=== PATIENT | female | born 1965 | race Caucasian/White ===

== ENCOUNTER 2017-08-15 09:05 | Emergency (ER) | payer BC ==
[~2017-08-15] VITALS: Ht 167.6 cm; Wt 90.7 kg
[~2017-08-15 09:05] MED LIST: SEROQUEL50 MG PO; SYNTHROID 0.0.125 MG PO; VITAMIN D31000 IU PO
--- OUTSIDE RECORDS SUMMARY | 2017-08-15 09:08 | External Medical Summary Rpt | CCD ---
Author Author , CELIA YANG Address Unknown Phone [email or web address] Purpose Continuity of Care Document - 04-19-2017 through 2016 Problems Code Diagnosis DOS Provider Status R92.8 OTHER 04-19-2017 ABNORMAL AND INCONCLUSIV E FINDINGS ON DIAGNOSTIC IMAGING OF BREAST
--- OUTSIDE RECORDS SUMMARY | 2017-08-15 09:08 | External Medical Summary Rpt | CCD ---
Author Author , CELIA YANG Address Unknown Phone [email or web address] Purpose Continuity of Care Document - 04-19-2017 through 2016 Problems Code Diagnosis DOS Provider Status R92.8 OTHER 04-19-2017 ABNORMAL AND INCONCLUSIV E FINDINGS ON DIAGNOSTIC IMAGING OF BREAST
--- OUTSIDE RECORDS SUMMARY | 2017-08-15 09:09 | External Medical Summary Rpt | CCD ---
Demographics Preferred Language Kittitian Marital Status Unknown Judaism Affiliation Unknown Race Unknown Ethnic Group Unknown Author Author , CELIA YANG Address Unknown Phone Immunization No patient found.
--- OUTSIDE RECORDS SUMMARY | 2017-08-15 09:09 | External Medical Summary Rpt ---
Author Author CELIA [place], [employer] Organization [employer] Address Unknown Phone Unavailable
--- OUTSIDE RECORDS SUMMARY | 2017-08-15 09:09 | External Medical Summary Rpt | CCD ---
Author Author [employer] Organization [employer] Address Unknown Phone Unavailable Purpose Continuity of Care Document - through 2016
--- OUTSIDE RECORDS SUMMARY | 2017-08-15 09:09 | External Medical Summary Rpt | CCD ---
Demographics Preferred Language [place] Marital Status Unknown Jainism Affiliation Unknown Race Unknown Ethnic Group Unknown Author Author , CELIA YANG Address Unknown Phone Immunization No patient found.
[2017-08-15] MEDS ORDERED: NYSTATIN SU60 ML/BOT PO (10:05)
--- NOTE | 2017-08-15 10:06 | Urgent Treatment Center Report ---
History of Present Issue Date/Time Seen by Provider 08/15/17 0957 Visit Reason Pt arrived:Walked Presenting Problem:PT C/O SORE THROAT AND DIZZINESS Location if Accident: Onset of symptoms date/time:/ or onset unknown for:MEDICAL HX UNKNOWN Have you (or family members/close friends) recently traveled outside the [place]? N If Yes, where/when: Have you had exposure to infectious disease within the past month? TB? Other? Specify: c/o sore throat, tongue and white coating on tongue. Reports dizziness week after Thanksgiving but hx of vertigo and that resolved. Reports recently "very ill" with stomach virus then this started soon after. Sore throat started Tuesday, 5 days ago. Initially thought PND. Pain described as burning. Mother came over last night and noticed white coating on tongue. Denies recent antibiotics, no steroids. No known sick contacts. Source patient Exam Limitations no limitations ALLERGIES Coded Allergies: Sulfa (Sulfonamide Antibiotics) (11/03/16) morphine (11/03/16) Home Medications Reported Medications Levothyroxine Sodium (Synthroid 0.125MG) 0.138 MG PO DAILY Quetiapine Fumarate (Seroquel 50MG) 50 MG PO NIGHTLY CHOLECALCIFEROL (VITAMIN D3) (Vitamin D) 1,000 IUNITS PO DAILY History Medical History General CAD? No Angina: No LA: No Hypertension? No Hyperlipidemia? No CHF? No DVT? No PE? No COPD? No Asthma? No Anemia? No GERD? No Gastric ulcers? No GI Bleed? No Hernia? No Thyroid Problems? Yes Hypothyroidism? Yes CVA? No Seizures? No Diabetes? No Renal Insuffiency? No UTI? No Stones? No GB Disease: No Nephritic Syndrome? No Asplenia? No Hepatitis? No Sickle Cell Disease? No Arthritis? No Migraines? No Cataracts? No Glaucoma? No MRSA? No HIV? No TB? No Anxiety? No Depression? No Cancer? No Immunization HX DT/Tetanus Unknown Surgical Hx Previous Surgery?Y APPENDECTOMY LITHOTRIPSY Social History Smoking Hx Smoker: Never Smoker Tobacco: No Type N/A Alcohol Alcohol: No Review of Systems All Other Systems Reviewed and Negative Constitutional see HPI, denies malaise Eyes denies drainage ENT see HPI. denies: ear pain, nose discharge, nose congestion, mouth swelling, tongue swelling, throat swelling. Respiratory denies cough, denies shortness of breath Gastrointestinal denies no symptoms reported Musculoskeletal denies joint pain Skin denies rash Psychiatric/Neurological denies headache Physical Exam Vital Signs Vital Signs Date Time Temp Pulse Resp B/P Pulse O2 O2 Flow FiO2 Ox Delivery Rate 08/15 924 97.9 60 20 126/68 98 General Appearance normal appearance, no apparent distress Ear, Nose, Throat leno EACs, TMs, nares all unremarkable; tongue w/ thin white coating consistent w/ thrush, pharynx slightly erythematous w/o tonsillar swelling and no exudate Neck non-tender, supple Respiratory Status No: respiratory distress, productive cough, non productive cough. Lung Sounds anterior: lungs clear. posterior: lungs clear. bilateral: lungs clear. Cardiovascular regular rate/rhythm, no peripheral edema, no murmur Neurologic alert, oriented x 3 Skin normal color, warm/dry Lymphatic no adenopathy Medical Decision Making LABS/Meds/Orders Pt receiving controlled substance in ED? No Results/Orders Laboratory Tests 08/15/17926: Group A Strep Screen NOT DETECTED Orders Procedure Date/time Status [facility] STREP SCREEN 08/15 927 Complete Departure Departure Time of Disposition 1003 Disposition DC Home or Self Care(routine) Clinical Impression Primary Impression: Thrush, oral Condition STABLE Referrals MARYJANE LEAVITT (Family) IMMEDIATELY for new or worsening symptoms OR no noticeable improvement over the next 48-72 hours. 911 for difficulty breathing or swallowing. Patient Instructions DI for Thrush Additional Instructions Read attached education Most likely a result of the stomach virus and how sick you were with it. If it becomes reoccuring for no reason, be sure to follow up. Medication mouth wash as directed. Swish, gargle, swallow. Use 7-10 days even if symptoms seem better. * * Your throat swab was sent for culture. Those results are typically sent to your primary care. Be sure to follow up in 2-3 days if no improvement so they can review those results and treat if necessary. If you don't have primary care, I recommend you get one but in the mean time, you will have to return to a walk in clinic. Discharge Counseling Counseled pt/family regarding diagnosis, test results, medications/RX, home care, follow up needs Prescriptions Current Visit Scripts NYSTATIN (Nystatin Susp 100,000 Units/Ml 60ML) 5 ML PO QID #200 ML swiliz, bekahe, swallow at 1010
[2017-08-15 10:07] VITALS: BP 126/68
== END 2017-08-15 10:11 | disposition home or self-care (01) ==
LOC: UTC 09:05
DX: B37.0 Candidal stomatitis (principal); E03.9 Hypothyroidism, unspecified; Z88.2 Allergy status to sulfonamides